=== PATIENT | male | born 1970 | race Caucasian/White ===

== ENCOUNTER 2022-05-30 10:21 | Inpatient (IN) | payer OTHER ==
[~2022-05-30] VITALS: Ht 175 cm; Wt 120.2 kg
[2022-05-30 11:35] LABS: Source, Urine Clean Catch
[2022-05-30 11:47] LABS: Appearance, Urine Clear (Clear); Bilirubin, Urine Neg (Neg); Blood, Urine Neg (Neg); Color, Urine Yellow (P-Yellow); Glucose Qualitative, Urine Neg (Neg); Ketones, Urine 3+ (Neg); Leukocyte Esterase, Urine Neg (Neg); Nitrite, Urine Neg (Neg); Protein, Urine Neg (Neg); Urobilinogen, Urine NORM (Normal)
[2022-05-30 12:50] LABS: Magnesium, Blood 1.9 mg/dL (1.6-2.4); Phosphorus, Blood 3.1 mg/dL (2.5-4.9)
[2022-05-30] MEDS ORDERED: NEBI5 PO (16:07)
[2022-05-30] MEDS ORDERED: LISI20 PO (16:07)
[2022-05-30] MEDS ORDERED: MULVITA PO (16:09)
[2022-05-30] MEDS ORDERED: COQ-10100 MG PO (16:09)
--- NOTE | 2022-05-30 18:06 | NUR ---
SHIFT SUMMARY NO ACUTE CHANGES THIS SHIFT. PT REMAINS AWAKE, ALERT, AND ORIENTED. PT ANSWERS QUESTIONS APPROPRIATELY. PT DENIES PAIN OR DISCOMFORT AT THIS TIME. VITAL SIGNS STABLE. PT ON ROOM AIR. 3 PERCENT SALINE INFUSING AT 25 ML/HR. PT STANDS TO USE TOILET IN ROOM TO VOID INDEPENDENTLY. PT SPOUSE AT BEDSIDE THIS AFTERNOON. WILL CONTINUE TO MONITOR AND REPORT OFF TO ONCOMING RN.
--- NOTE | 2022-05-30 22:15 | NUR ---
MD MICHAELS NOTIFIED LUX RESULTS - VERBAL TO HOLD NA DRIP AND SL.
--- NOTE | 2022-05-31 02:28 | NUR ---
MARINA DRY DOCK MANAGER NOTIFIED WITH 0200 NA RESULTS. RECHECK AT 0600
--- NOTE | 2022-05-31 05:49 | NUR ---
A&OX4. DENIES PAIN. NA DRIP TURNED OFF AROUND 2200 PER MD ORDERS. LUNGS CLEAR ON RA. DENIES GI/ SYMPTOMS. AMBULATES IN ROOM. CTM NA LEVELS.
--- NOTE | 2022-05-31 07:42 | NUR ---
patient awake, alert and oriented x4, makes needs known, no distress, call light with in reach, next na+ lab at 1000, patient ready to be discharged home wctm
--- NOTE | 2022-05-31 08:03 | NUR ---
DR LEMA ROUNDED, PATIENT TO BE DISCHARGED HOME LATER TODAY
--- NOTE | 2022-05-31 11:45 | NUR ---
DISCHARGED AT 1117, EDUCATION TO PATIENT AND GIRLFRIEND, BOTH STATED UNDERSTANDING OF DIRECTION, W/C YO CAR, STEADY GAIT
== END 2022-05-31 12:19 | disposition home or self-care (01) | DRG 641 ==
LOC: ER 10:21 → ICUW 14:39
PROVIDERS: Physician Assistant; ADMIT Internal Medicine
DX: E87.1 Hypo-osmolality and hyponatremia (principal); R06.00 Dyspnea, unspecified; I10 Essential (primary) hypertension; E78.5 Hyperlipidemia, unspecified; M79.10 Myalgia, unspecified site; E66.01 Morbid (severe) obesity due to excess calories; R74.01 Elevation of levels of liver transaminase levels; R60.0 Localized edema; F10.10 Alcohol abuse, uncomplicated; Z79.899 Other long term (current) drug therapy; Z68.39 Body mass index [BMI] 39.0-39.9, adult
CPT/HCPCS: 36415; 71045; 81003; 82533; 83735; 83880; 83930; 83935; 84100; 84295; 84300; A9270

== ENCOUNTER → 2022-05-30 | Outpatient (CLI) | payer OTHER ==
[~2022-05-30] MED LIST: COQ-10100 MG PO; LISI20 PO; MULVITA PO; NEBI5 PO
[2022-05-30 09:51] LABS: Albumin, Blood 3.6 g/dL (3.4-5.0); Albumin/Globulin Ratio 1.1 (0.8-1.8); Bilirubin, Total 0.9 mg/dL (0.1-1.0); Calcium, Blood 8.8 mg/dL (8.5-10.1); Creatinine, Blood 0.83 mg/dL (0.60-1.20); Globulin, Blood 3.2 g/dL (2.2-4.0); Potassium, Blood 3.7 mmol/L (3.5-5.5); Thyroid Stimulating Hormone 1.666 uIU/mL (0.360-4.800); Total Protein, Blood 6.8 g/dL (6.4-8.2)
[2022-05-30 10:33] LABS: BASOPHILS ABSOLUTE AUTO 0.04 K/mm3 (0.00-0.23); BASOPHILS PERCENT AUTO 1 % (0-2); EOSINOPHILS PERCENT AUTO 2 % (0-6); Hemoglobin 13.4 g/dL (13.5-17.5); IMMATURE GRAN ABSOLUTE AUTO 0.09 K/mm3 (0.00-0.10); IMMATURE GRAN PERCENT AUTO 2 % (0-1); LYMPHOCYTES ABSOLUTE AUTO 1.22 K/mm3 (0.84-5.20); LYMPHOCYTES PERCENT AUTO 21 % (21-46); MONOCYTES ABSOLUTE AUTO 0.87 K/mm3 (0.16-1.47); MONOCYTES PERCENT AUTO 15 % (4-13); Mean Corpuscular HGB 34.5 pg (26.0-34.0); Mean Corpuscular HGB Conc 37.2 g/dL (31.5-36.5); Mean Corpuscular Volume 93 fL (80-100); Mean Platelet Volume 9.3 fL (9.1-12.4); NEUTROPHILS ABSOLUTE AUTO 3.57 K/mm3 (1.96-9.15); NEUTROPHILS PERCENT AUTO 61 % (41-73); Platelet Count 225 K/mm3 (150-400); RDW Coefficient Variation 11.4 % (11.7-14.2); RDW Standard Deviation 38.8 fL (35.1-46.3); Red Blood Cell Count 3.88 M/mm3 (4.30-5.90); White Blood Cell Count 5.89 K/mm3 (4.00-11.30)
== END | disposition home or self-care (01) ==
LOC: LAB SHORT 09:27 → LAB 09:27
PROVIDERS: Physician Assistant
DX: H53.8 Other visual disturbances (principal); R53.83 Other fatigue
CPT/HCPCS: 80053; 83036; 84443; 85025

== ENCOUNTER 2022-11-12 05:52 | Day surgery (SDC) | payer OTHER ==
[~2022-11-12] VITALS: Ht 175.3 cm; Wt 107.9 kg
[~2022-11-12 05:52] MED LIST changes: +ALLO100 PO; +LOVA40 PO; +VITAMIN D310 MC4 PO
[2022-11-12] MEDS ORDERED: Benadryl25 MG PO (06:32)
--- NOTE | 2022-11-12 07:12 | NUR ---
Ambulatory in Day Surgery. History, Chart, Medications and Allergies reviewed before start of procedure. Lungs clear T/O to Auscultation. Patient confirms NPO status and agrees with scheduled surgery. Patient States Post-Procedure ride home has been arranged WITH .
--- NOTE | 2022-11-12 09:48 | NUR ---
Dressing to procedure site clean, dry, intact with no visible drainage, swelling, erythema or bruising noted. Patient up to Ambulate independently. Gait steady. Patient States Post-Procedure ride home has been arranged with . Discharged via wheelchair to private car for ride home. Stable for discharge.
== END 2022-11-12 09:50 | disposition home or self-care (01) ==
LOC: ORSCMMR 05:52 → ORD 07:30 → ORSCMMR 09:50
PROVIDERS: Surgery
PROC: 0WUF4JZ Supplement Abdominal Wall with Synthetic Substitute, Percutaneous Endoscopic Approach (ICD-10-PCS; principal; 2022-11-12 07:30)
DX: K42.0 Umbilical hernia with obstruction, without gangrene (principal); I10 Essential (primary) hypertension; Z79.899 Other long term (current) drug therapy; E66.9 Obesity, unspecified; Z68.35 Body mass index [BMI] 35.0-35.9, adult
CPT/HCPCS: A9270; C1781; J0690; J1100; J1885; J2250; J2405; J2704; J2795; J3010; J7120